=== PATIENT | male | born 1940 | race Caucasian/White ===

== ENCOUNTER 2022-05-30 20:07 | Emergency (ER) | payer OTHER ==
[2022-05-30 23:19] LABS: BASOPHIL 0.3 % (0-2); EOSINOPHIL 0.1 % (0-7); HCT 38.9 % (42.0-52.0); LYMPHOCYTE 12.1 % (15-48); MCHC 33.4 g/dL (32.0-36.0); MCV 89.6 fL (78.0-100.0); MONOCYTE 16.7 % (0-12); MPV 8.6 fL (6.0-9.5); NEUTROPHIL 70.5 % (41-80); NRBC 0; PLT 164 K/uL (150-400); RBC 4.34 M/uL (4.70-6.00); RDW 13.2 % (11.5-14.0); WBC 7.2 K/uL (4.0-10.5)
[2022-05-30 23:48] LABS: ALBUMIN 3.6 g/dL (3.4-5.0); BILIRUBIN - TOTAL 0.4 mg/dL (0.2-1.0); BUN/CREAT RATIO (CALC) 14.8 RATIO; CREATININE 1.22 mg/dL (0.67-1.17); GLOBULIN (CALCULATION) 3.3 g/dL; POTASSIUM 3.4 mmol/L (3.5-5.1); TOTAL PROTEIN 6.9 g/dL (6.4-8.2)
== END 2022-05-31 05:50 | disposition other institution (70) ==
LOC: FER 20:07
PROVIDERS: Emergency Medicine
DX: G91.2 (Idiopathic) normal pressure hydrocephalus (principal); U07.1 COVID-19; I10 Essential (primary) hypertension; Z28.311 Partially vaccinated for COVID-19
CPT/HCPCS: 36415; 70450; 71045; 80053; 84484; 85025; J7030